=== PATIENT | female | born 1980 | race Caucasian/White ===

== ENCOUNTER 2022-05-17 11:08 | Outpatient (CLI) | payer OTHER, SELFPAY ==
[2022-05-21 04:11] LABS: Progesterone 22.8 ng/mL (***)
== END 2022-05-17 11:09 | disposition home or self-care (01) ==
PROVIDERS: PCP Family Medicine; Visit Provider Student in an Organized Health Care Education/Training Program
DX: N92.6 Irregular menstruation, unspecified (principal)
CPT/HCPCS: 36415; 84144

== ENCOUNTER 2023-03-30 10:56 | Emergency (ER) | payer OTHER, SELFPAY ==
[2023-03-30 11:01] VITALS: BP 126/93; PULSE 89; RESP 16; TEMP 36.7; O2SAT 98
--- NOTE | 2023-03-30 11:38 | ED.URI ---
HPI - URI/Sore Throat General Chief Complaint: Upper Respiratory Infection Stated Complaint: throat Time Seen by Provider: 03/30/23 11:30 Source: patient, RN notes reviewed and old records reviewed Mode of arrival: ambulatory Limitations: no limitations History of Present Illness HPI Narrative: 42 year old female who presents to [facility] with complaints of sore throat which started yesterday with swollen glands and painful swallowing. She reports no cough, shortness of breath, denies any nausea vomiting or diarrhea.Patient admits to some nasal congestion and drainage,denies any sinus pain or headache. Patient reports that she has taken some Tylenol for her symptoms,denies any fever or body aches. MD elicited complaint: sore throat, rhinorrhea and nasal congestion Pertinent past history: other (bronchitis) Onset (ago): day(s) (day 2 of symptoms) Pain scale (0-10): 10 Able to tolerate fluids by mouth: Yes Exacerbating factors: swallowing Treatments prior to arrival: acetaminophen Related Data Home Medications Medication Instructions Recorded Confirmed venlafaxine 150 mg 150 mg PO DAILY 03/08/22 capsule,extended release 24 hr (Effexor XR) ciclopirox 0.77 % topical cream applic topical 03/30/23 Allergies Allergy/AdvReac Type Severity Reaction Status Date / Time amoxicillin [From Augmentin] Allergy Mild Rash Verified 03/30/23 10:58 clavulanic acid Allergy Mild Rash Verified 03/30/23 10:58 [From Augmentin] Review of Systems Review of Systems: CONSTITUTIONAL: Denies malaise, chills, sweats, or fever. EYES: Denies visual changes, redness, or discharge. ENT: Reports rhinorrhea, congestion, no sinus pain,no otalgia and positive for sore throat. CARDIOVASCULAR: Denies chest pain, palpitations, or edema. RESPIRATORY: Reports no cough.? Denies dyspnea. GASTROINTESTINAL: Denies abdominal pain, nausea, vomiting, diarrhea SKIN: Denies rash or itching. MUSCULOSKELETAL: Denies myalgia. NEUROLOGIC: Denies headache. All systems reviewed & are unremarkable except as noted in HPI and below PMFSH Past Medical History Medical History Anxiety Depression Surgical History Surgical History History of carpal tunnel release History of cholecystectomy Family History Family History Mother Diabetes mellitus Malignant neoplasm of lung Social History Social History Smoking status: Never smoker Alcohol intake: current Alcohol use details: occasional Substance use: never Living arrangements: other Additional living arrangements comments: and children Gender identity (if verbalized by the patient): Female Sexual Orientation (if Verbalized by the Patient): Straight or Heterosexual Comments At time of signature, agree with nursing past medical, surgical, social and family history. There is no relevant family history pertinent to the presenting complaint Exam Narrative: GENERAL: Well-appearing, well-nourished, and in no acute distress. HEAD: Normocephalic EYES: PERRLA, conjunctivae clear ENT: Nares clear, turbinates edematous and erythematous, clear discharge. Mucous membranes moist. TM pearly vasquez with dull light reflex bilaterally; no tragal tenderness. Oropharynx erythematous without lesions. Tonsils red enlarged and without exudate, no drooling, no hoarseness, no trismus, uvula midline.painful swallowing NECK: Supple. lymphadenopathy CHEST: Clear to auscultation, breath sounds equal. No wheezing, rhonchi, rales, or stridor. No respiratory distress, speaks in full sentences.SAO2 98% on room air HEART: Regular rate and rhythm. No murmur heard. SKIN: Warm, dry, no rash. NEURO: Alert and oriented x3. PSYCH: Normal mood and affect Course Co
== END 2023-03-30 11:57 | disposition home or self-care (01) ==
PROVIDERS: Emergency Provider Registered Nurse; PCP Family Medicine
DX: J03.90 Acute tonsillitis, unspecified (principal)
CPT/HCPCS: 87081; 87880; 99213; G0463